=== PATIENT | female | born 1995 | race Caucasian/White ===

== ENCOUNTER → 2017-08-21 | Outpatient (CLI) | payer OTHER ==
[~2017-08-21] MED LIST: Abilify2 MG; FLUO10 PO; IBUP800 PO; NAPR500 PO; NAPR550; Norco 10-325 T1 EACH PO; OXYACE5T PO; PROM25 PO; TRAM50 PO; VENL150ER PO; VIIBRYD20 MG PO
== END ==
LOC: LAB SHORT 19:01
DX: J02.9 Acute pharyngitis, unspecified (principal)
CPT/HCPCS: 87070

== ENCOUNTER → 2018-01-25 | Outpatient (CLI) | payer OTHER ==
[~2018-01-25] MED LIST changes: -Abilify2 MG; -NAPR550; -VENL150ER PO
[2018-01-25 12:17] LABS: Alanine Aminotransfer (ALT/SGP 49 U/L (12-78); Alk Phos 82 U/L (40-126); Anion Gap 9 mmol/L (6-16); Aspartate Aminotrans (AST/SGOT 21 U/L (12-37); Bilirubin, Total 0.3 mg/dL (0.1-1.0); Blood Urea Nitrogen 12 mg/dL (8-24); Bun/Creatinine Ratio 16.7 (12.0-20.0); CO2, Blood 26 mmol/L (21-32); Calcium, Blood 9.1 mg/dL (8.5-10.1); Chloride, Blood 104 mmol/L (98-108); Creatinine, Blood 0.72 mg/dL (0.40-1.00); Globulin, Blood 3.9 g/dL (2.2-4.0); Glomerular Filtration Rate >60 (60-); Glucose, Blood 106 mg/dL (70-99); Potassium, Blood 4.1 mmol/L (3.5-5.5); Sodium, Blood 139 mmol/L (136-145); Total Protein, Blood 7.9 g/dL (6.4-8.2)
[2018-01-25 12:44] LABS: BASOPHILS ABSOLUTE AUTO 0.04 K/mm3 (0.00-0.23); BASOPHILS PERCENT AUTO 0 % (0-2); EOSINOPHILS ABSOLUTE AUTO 0.17 K/mm3 (0.00-0.68); EOSINOPHILS PERCENT AUTO 2 % (0-6); Hematocrit 40.7 % (33.0-51.0); Hemoglobin 13.7 g/dL (11.5-16.0); IMMATURE GRAN ABSOLUTE AUTO 0.02 K/mm3 (0.00-0.10); IMMATURE GRAN PERCENT AUTO 0 % (0-1); LYMPHOCYTES ABSOLUTE AUTO 2.94 K/mm3 (0.84-5.20); LYMPHOCYTES PERCENT AUTO 32 % (21-46); MONOCYTES ABSOLUTE AUTO 0.75 K/mm3 (0.16-1.47); MONOCYTES PERCENT AUTO 8 % (4-13); Mean Corpuscular HGB 29.5 pg (26.0-34.0); Mean Corpuscular HGB Conc 33.7 g/dL (31.5-36.5); Mean Corpuscular Volume 88 fL (80-100); Mean Platelet Volume 10.1 fL (9.1-12.4); NEUTROPHILS ABSOLUTE AUTO 5.31 K/mm3 (1.96-9.15); NEUTROPHILS PERCENT AUTO 58 % (41-73); Platelet Count 282 K/mm3 (150-400); RDW Coefficient Variation 12.9 % (11.7-14.2); RDW Standard Deviation 41.3 fL (35.1-46.3); Red Blood Cell Count 4.64 M/mm3 (3.80-5.20); White Blood Cell Count 9.23 K/mm3 (4.00-11.30)
== END ==
LOC: LAB SHORT 12:02 → LAB EV 12:02
PROVIDERS: Physician Assistant Medical
DX: R10.84 Generalized abdominal pain (principal)
CPT/HCPCS: 80053; 85025

== ENCOUNTER 2018-08-07 17:07 | Observation (INO) | payer OTHER ==
[~2018-08-07] VITALS: Ht 162.6 cm; Wt 119.6 kg
[~2018-08-07 17:07] MED LIST changes: -BC; -METPHE20 PO; -XARELTO15 MG PO
[2018-08-07] MEDS ORDERED: METPHE20 PO (17:20)
[2018-08-07] MEDS ORDERED: BC (21:14)
--- NOTE | 2018-08-07 22:50 | NUR ---
ASSUMED CARE OF PATIENT AT APPROXIMATELY 2109 FROM ED SHEILA DUVALL; PATIENT ARRIVED TO UNIT VIA STRETCHER; TRANSFER FROM ED TO PCU BED INDEPENDENTLY. PATIENT DENIES CP/PRESSURE, PAIN ELSEWHERE, NUMBNESS, TINGLING, DIZZINESS OR NAUSEA. PATIENT WILL CALL IF ANY OF THOSE SYMPTONS OCCUR. ST ON TELE; OXYGEN SATURATION ABOVE 90% ON ROOM AIR; DENIES DYSPNEA. PATIENT ARRIVED TO UNIT WITH HEPARIN INFUSING. PATIENT INDEPENDENT TO BATHROOM. ADMISSION COMPLETE. PATIENT CURRENTLY RESTING IN BED; CALL LIGHT IN REACH; BED IN LOWEST POSISTION; WILL CONTINUE TO MONITOR AND ASSESS UNTIL END OF SHIFT.
--- NOTE | 2018-08-07 23:49 | NUR ---
PATIENT REPORTS CHEST PAIN THAT INCREASES WITH DEEP BREATHING. PATIENT WAS LAYING IN FLAT POSISTION; HEAD OF BED ELEVATED AND PATIENT REPORTS PAIN IMMEDIATELY DECREASED; MEDICATED PER EMAR; PAIN 4/10. PATIENT ASLEEP LESS THAN AN HOUR LATER.
[2018-08-08 04:10] LABS: Hematocrit 37.6 % (33.0-51.0); Hemoglobin 12.3 g/dL (11.5-16.0); Mean Corpuscular HGB 28.6 pg (26.0-34.0); Mean Corpuscular HGB Conc 32.7 g/dL (31.5-36.5); Mean Corpuscular Volume 87 fL (80-100); Platelet Count 243 K/mm3 (150-400); RDW Coefficient Variation 12.6 % (11.7-14.2); RDW Standard Deviation 40.5 fL (35.1-46.3); White Blood Cell Count 8.68 K/mm3 (4.00-11.30)
[2018-08-08 04:28] LABS: Alanine Aminotransfer (ALT/SGP 26 U/L (12-78); Albumin, Blood 2.9 g/dL (3.4-5.0); Albumin/Globulin Ratio 0.7 (0.8-1.8); Alk Phos 90 U/L (50-136); Anion Gap 7 mmol/L (6-16); Aspartate Aminotrans (AST/SGOT 14 U/L (12-37); Bilirubin, Total 0.3 mg/dL (0.1-1.0); Blood Urea Nitrogen 11 mg/dL (8-24); Bun/Creatinine Ratio 15.9 (12.0-20.0); CO2, Blood 25 mmol/L (21-32); Calcium, Blood 8.1 mg/dL (8.5-10.1); Chloride, Blood 110 mmol/L (98-108); Creatinine, Blood 0.69 mg/dL (0.40-1.00); Globulin, Blood 4.3 g/dL (2.2-4.0); Glomerular Filtration Rate >60 (60-); Glucose, Blood 97 mg/dL (70-99); Potassium, Blood 3.9 mmol/L (3.5-5.5); Sodium, Blood 142 mmol/L (136-145); Total Protein, Blood 7.2 g/dL (6.4-8.2)
--- NOTE | 2018-08-08 06:27 | NUR ---
PATIENT SLEPT ABOUT SIX HOURS LAST NIGHT; HEPARIN ADJUSTED ONE; VSS; NO OTHER ACUTE CHANGES TO REPORT. WILL CONTINUE TO MONITOR AND ASSESS UNTIL END OF SHIFT.
--- NOTE | 2018-08-08 08:25 | NUR ---
BEGINNING SHIFT NOTE PT RESTING IN BED. A&O. PT REPORTS CHEST PAIN AND BACK PAIN, MEDICATED WITH TYLENOL. PT SITTING UP IN BED EATING BREAKFAST. TELE NSR IN 'S. HEPERIN DRIP VERIFIED WITH NOC RN SHAYLA NEELY DURING BEDSIDE REPORT. VSS. WILL CONTINUE TO MONITOR.
--- NOTE | 2018-08-08 10:02 | NUR ---
PT PROVIDED RITALIN AND EFFOR MEDICATION BOTTLES, VERIFIED ON MEDICATION LIST. THE RITALIN ORDERED IS ER HOWEVER PRESCRIPTION FOR IMMEDIATE RELEASE. NOTIFIED DR GUEVARA, NEW ORDER TO CHANGE TO RITALIN 20MG PO BID TO MATCH HOME MEDICATIONS.
--- NOTE | 2018-08-08 12:49 | NUR ---
CALLED DR GUEVARA TO CLARIFY HEPARIN BOLUS AND RATE CHANGE AND STARTING XARELTO. NEW ORDERS TO DISCONTINUE HEPARIN NOW AND FIRST DOSE OF HEPARIN NOW. WILL CONTINUE TO MONITOR.
[2018-08-08] MEDS ORDERED: XARELTO15 MG PO (12:53)
--- NOTE | 2018-08-08 14:45 | NUR ---
DISCHARGE NOTE PT A&OX4. CALM AND COOPERATIVE WITH CARE. PT RESTING IN BED DURING SHIFT, UP ON SIDE OF BED FOR MEALS. IND IN ROOM. PT SOB WITH EXERTION, >95% ON RA, LS DIM IN UPPER LOBES. PT REPORTS CHEST/BREATHING AND BACK PAIN, MEDICATED X1 WITH TYLENOL WITH POSITIVE RESULTS. PT DENIES N/V DURING SHIFT. PT ON HEPARIN DRIP, DISCONTINUED AT 1320. PT STARTED ON XARELTO PRIOR TO DISCHARGE. VSS. NO OTHER ACUTE CHANGES NOTED DURING SHIFT. PT EDUCATED ON DISCHARGE INSTRUCTIONS, MEDICATIONS AND FOLLOW UP APPOINTMENTS. PT EDUCATED TO BE REEVALUATED IF S/SX WORSE OR INCREASING SOB. PRESCRIPTIONS FAX TO [facility] PER PT REQUEST. NO OTHER ACUTE CHANGES NOTED DURING SHIFT. PT LEFT ROOM VIA WHEELCHAIR AT 1343. PT STABLE UPON DISCHARGE.
== END 2018-08-08 13:48 | disposition home or self-care (01) ==
LOC: ER 17:07 → PCU 17:08
PROVIDERS: ADMIT Internal Medicine
DX: I26.99 Other pulmonary embolism without acute cor pulmonale (principal); F32.9 Major depressive disorder, single episode, unspecified; G40.909 Epilepsy, unspecified, not intractable, without status epilepticus; R00.0 Tachycardia, unspecified; N83.201 Unspecified ovarian cyst, right side; Z79.899 Other long term (current) drug therapy; Z51.81 Encounter for therapeutic drug level monitoring
CPT/HCPCS: 36415; 71260; 80053; 81025; 83690; 84484; 85025; 85027; 85379; 85730; 93005; 93010; 96361; 96365; 96376; 99285-25; G0378; J1644; J7030; Q9967

== ENCOUNTER → 2018-08-07 | Outpatient (CLI) | payer OTHER ==
[~2018-08-07] MED LIST changes: +Abilify2 MG; +BC; +METPHE20 PO; +NAPR550; +VENL150ER PO; +XARELTO15 MG PO
[2018-08-07 16:43] LABS: BASOPHILS ABSOLUTE AUTO 0.04 K/mm3 (0.00-0.23); BASOPHILS PERCENT AUTO 0 % (0-2); EOSINOPHILS ABSOLUTE AUTO 0.14 K/mm3 (0.00-0.68); EOSINOPHILS PERCENT AUTO 2 % (0-6); Hematocrit 41.5 % (33.0-51.0); Hemoglobin 13.9 g/dL (11.5-16.0); IMMATURE GRAN ABSOLUTE AUTO 0.03 K/mm3 (0.00-0.10); IMMATURE GRAN PERCENT AUTO 0 % (0-1); LYMPHOCYTES ABSOLUTE AUTO 3.02 K/mm3 (0.84-5.20); LYMPHOCYTES PERCENT AUTO 32 % (21-46); MONOCYTES ABSOLUTE AUTO 0.64 K/mm3 (0.16-1.47); MONOCYTES PERCENT AUTO 7 % (4-13); Mean Corpuscular HGB 28.5 pg (26.0-34.0); Mean Corpuscular HGB Conc 33.5 g/dL (31.5-36.5); Mean Corpuscular Volume 85 fL (80-100); NEUTROPHILS ABSOLUTE AUTO 5.68 K/mm3 (1.96-9.15); NEUTROPHILS PERCENT AUTO 60 % (41-73); Platelet Count 282 K/mm3 (150-400); RDW Coefficient Variation 12.5 % (11.7-14.2); RDW Standard Deviation 38.5 fL (35.1-46.3); Red Blood Cell Count 4.88 M/mm3 (3.80-5.20); White Blood Cell Count 9.55 K/mm3 (4.00-11.30)
[2018-08-07 16:57] LABS: Alanine Aminotransfer (ALT/SGP 33 U/L (12-78); Albumin, Blood 3.3 g/dL (3.4-5.0); Albumin/Globulin Ratio 0.7 (0.8-1.8); Alk Phos 105 U/L (40-126); Anion Gap 12 mmol/L (6-16); Aspartate Aminotrans (AST/SGOT 19 U/L (12-37); Bilirubin, Total 0.3 mg/dL (0.1-1.0); Blood Urea Nitrogen 11 mg/dL (8-24); Bun/Creatinine Ratio 13.6 (12.0-20.0); CO2, Blood 23 mmol/L (21-32); Calcium, Blood 9.3 mg/dL (8.5-10.1); Chloride, Blood 104 mmol/L (98-108); Creatinine, Blood 0.81 mg/dL (0.40-1.00); Glomerular Filtration Rate >60 (60-); Glucose, Blood 111 mg/dL (70-99); Potassium, Blood 4.1 mmol/L (3.5-5.5); Sodium, Blood 139 mmol/L (136-145); Total Protein, Blood 8.3 g/dL (6.4-8.2)
[2018-08-07 16:58] LABS: Troponin I <0.015 ng/mL (0.000-0.040)
== END | disposition home or self-care (01) ==
LOC: LAB SHORT 16:39 → LAB EV 16:39
PROVIDERS: Physician Assistant
DX: R07.9 Chest pain, unspecified (principal)
CPT/HCPCS: 80053; 83690; 84484; 85025; 85379

== ENCOUNTER 2018-08-17 16:32 | Emergency (ER) | payer OTHER ==
[~2018-08-17] VITALS: Ht 162.6 cm; Wt 120.2 kg
[~2018-08-17 16:32] MED LIST changes: +BC; +METPHE20 PO; +XARELTO15 MG PO
[2018-08-17 17:31] LABS: BASOPHILS ABSOLUTE AUTO 0.04 K/mm3 (0.00-0.23); BASOPHILS PERCENT AUTO 0 % (0-2); EOSINOPHILS ABSOLUTE AUTO 0.13 K/mm3 (0.00-0.68); EOSINOPHILS PERCENT AUTO 1 % (0-6); Hematocrit 44.6 % (33.0-51.0); Hemoglobin 14.4 g/dL (11.5-16.0); IMMATURE GRAN ABSOLUTE AUTO 0.02 K/mm3 (0.00-0.10); IMMATURE GRAN PERCENT AUTO 0 % (0-1); LYMPHOCYTES ABSOLUTE AUTO 3.09 K/mm3 (0.84-5.20); LYMPHOCYTES PERCENT AUTO 34 % (21-46); MONOCYTES ABSOLUTE AUTO 0.62 K/mm3 (0.16-1.47); MONOCYTES PERCENT AUTO 7 % (4-13); Mean Corpuscular HGB 28.5 pg (26.0-34.0); Mean Corpuscular HGB Conc 32.3 g/dL (31.5-36.5); Mean Corpuscular Volume 88 fL (80-100); Mean Platelet Volume 9.9 fL (9.1-12.4); NEUTROPHILS ABSOLUTE AUTO 5.08 K/mm3 (1.96-9.15); NEUTROPHILS PERCENT AUTO 57 % (41-73); Platelet Count 319 K/mm3 (150-400); RDW Coefficient Variation 12.2 % (11.7-14.2); RDW Standard Deviation 39.5 fL (35.1-46.3); Red Blood Cell Count 5.05 M/mm3 (3.80-5.20); White Blood Cell Count 8.98 K/mm3 (4.00-11.30)
[2018-08-17 17:46] LABS: Alanine Aminotransfer (ALT/SGP 46 U/L (12-78); Albumin, Blood 3.6 g/dL (3.4-5.0); Albumin/Globulin Ratio 0.8 (0.8-1.8); Alk Phos 99 U/L (50-136); Anion Gap 4 mmol/L (6-16); Aspartate Aminotrans (AST/SGOT 27 U/L (12-37); Bilirubin, Total 0.3 mg/dL (0.1-1.0); Blood Urea Nitrogen 12 mg/dL (8-24); Bun/Creatinine Ratio 17.9 (12.0-20.0); CO2, Blood 28 mmol/L (21-32); Calcium, Blood 9.1 mg/dL (8.5-10.1); Chloride, Blood 106 mmol/L (98-108); Creatinine, Blood 0.67 mg/dL (0.40-1.00); Globulin, Blood 4.7 g/dL (2.2-4.0); Glomerular Filtration Rate >60 (60-); Glucose, Blood 120 mg/dL (70-99); Potassium, Blood 3.9 mmol/L (3.5-5.5); Sodium, Blood 138 mmol/L (136-145); Total Protein, Blood 8.3 g/dL (6.4-8.2)
== END 2018-08-17 19:36 | disposition home or self-care (01) ==
LOC: ER 16:32
PROVIDERS: Physician Assistant
DX: I26.99 Other pulmonary embolism without acute cor pulmonale (principal); Z79.899 Other long term (current) drug therapy
CPT/HCPCS: 36415; 80053; 85025; 93005; 93010; 99285-25

== ENCOUNTER → 2018-10-29 | Outpatient (CLI) | payer OTHER ==
[~2018-10-29] MED LIST changes: +XARELTO20 MG PO
[2018-10-29 15:02] LABS: BASOPHILS ABSOLUTE AUTO 0.05 K/mm3 (0.00-0.23); BASOPHILS PERCENT AUTO 0 % (0-2); EOSINOPHILS ABSOLUTE AUTO 0.15 K/mm3 (0.00-0.68); EOSINOPHILS PERCENT AUTO 1 % (0-6); Hematocrit 40.3 % (33.0-51.0); Hemoglobin 13.5 g/dL (11.5-16.0); IMMATURE GRAN ABSOLUTE AUTO 0.03 K/mm3 (0.00-0.10); IMMATURE GRAN PERCENT AUTO 0 % (0-1); LYMPHOCYTES ABSOLUTE AUTO 3.87 K/mm3 (0.84-5.20); LYMPHOCYTES PERCENT AUTO 33 % (21-46); MONOCYTES ABSOLUTE AUTO 0.58 K/mm3 (0.16-1.47); MONOCYTES PERCENT AUTO 5 % (4-13); Mean Corpuscular HGB 28.7 pg (26.0-34.0); Mean Corpuscular HGB Conc 33.5 g/dL (31.5-36.5); Mean Corpuscular Volume 86 fL (80-100); Mean Platelet Volume 10.2 fL (9.1-12.4); NEUTROPHILS ABSOLUTE AUTO 7.06 K/mm3 (1.96-9.15); NEUTROPHILS PERCENT AUTO 60 % (41-73); Platelet Count 306 K/mm3 (150-400); RDW Coefficient Variation 13.2 % (11.7-14.2); RDW Standard Deviation 40.9 fL (35.1-46.3); Red Blood Cell Count 4.71 M/mm3 (3.80-5.20); White Blood Cell Count 11.74 K/mm3 (4.00-11.30)
[2018-10-29 15:20] LABS: Alanine Aminotransfer (ALT/SGP 41 U/L (12-78); Albumin, Blood 3.9 g/dL (3.4-5.0); Albumin/Globulin Ratio 0.9 (0.8-1.8); Alk Phos 90 U/L (40-126); Anion Gap 10 mmol/L (6-16); Aspartate Aminotrans (AST/SGOT 20 U/L (12-37); Bilirubin, Total 0.4 mg/dL (0.1-1.0); Blood Urea Nitrogen 9 mg/dL (8-24); Bun/Creatinine Ratio 9.3 (12.0-20.0); CO2, Blood 27 mmol/L (21-32); CPK Creatine Kinase 57 U/L (26-192); Calcium, Blood 8.5 mg/dL (8.5-10.1); Chloride, Blood 101 mmol/L (98-108); Creatinine, Blood 0.97 mg/dL (0.40-1.00); Free Thyroxine 0.78 ng/dL (0.70-1.60); Globulin, Blood 4.4 g/dL (2.2-4.0); Glomerular Filtration Rate >60 (60-); Glucose, Blood 142 mg/dL (70-99); Potassium, Blood 3.6 mmol/L (3.5-5.5); Sodium, Blood 138 mmol/L (136-145); Thyroid Stimulating Hormone 0.979 uIU/mL (0.360-4.800); Total Protein, Blood 8.3 g/dL (6.4-8.2)
[2018-10-29 15:56] LABS: Troponin I <0.017 ng/mL (0.000-0.040)
== END | disposition home or self-care (01) ==
LOC: LAB EV 14:54 → LAB SHORT 14:54
PROVIDERS: General Practice
DX: R00.2 Palpitations (principal)
CPT/HCPCS: 80053; 82550; 84439; 84443; 84484; 85025; 85379

== ENCOUNTER 2019-02-03 08:25 | Emergency (ER) | payer OTHER ==
[~2019-02-03] VITALS: Ht 162.6 cm; Wt 117.9 kg
[2019-02-03] MEDS ORDERED: Venlafaxine HC225 MG PO (08:56)
== END 2019-02-03 09:44 | disposition home or self-care (01) ==
LOC: ER 08:25
DX: R51 Headache (principal)
CPT/HCPCS: 96372; 99283-25; J0780; J1200; J1885

== ENCOUNTER 2019-03-23 10:43 | Emergency (ER) | payer OTHER ==
[~2019-03-23] VITALS: Ht 162.6 cm; Wt 117.9 kg
[~2019-03-23 10:43] MED LIST changes: +Venlafaxine HC225 MG PO
[2019-03-23] MEDS ORDERED: ALPR1 PO (11:11)
== END 2019-03-23 12:11 | disposition home or self-care (01) ==
LOC: ER 10:43
DX: S51.812A Laceration without foreign body of left forearm, initial encounter (principal); S61.512A Laceration without foreign body of left wrist, initial encounter; F32.9 Major depressive disorder, single episode, unspecified; F43.9 Reaction to severe stress, unspecified; W26.9XXA Contact with unspecified sharp object(s), initial encounter; Z88.8 Allergy status to other drugs, medicaments and biological substances; Z79.899 Other long term (current) drug therapy
CPT/HCPCS: 99283

== ENCOUNTER 2019-06-11 17:50 | Emergency (ER) | payer MEDICAID ==
[~2019-06-11 17:50] MED LIST changes: +ALPR1 PO
== END 2019-06-11 18:11 | disposition left against medical advice (07) ==
LOC: ER 17:50
DX: Z53.21 Procedure and treatment not carried out due to patient leaving prior to being seen by health care provider (principal)

== ENCOUNTER 2019-07-18 08:48 | Emergency (ER) | payer OTHER ==
[~2019-07-18] VITALS: Ht 162.6 cm; Wt 113.4 kg
[2019-07-18 10:04] LABS: BASOPHILS ABSOLUTE AUTO 0.04 K/mm3 (0.00-0.23); BASOPHILS PERCENT AUTO 1 % (0-2); EOSINOPHILS ABSOLUTE AUTO 0.13 K/mm3 (0.00-0.68); EOSINOPHILS PERCENT AUTO 2 % (0-6); Hematocrit 41.2 % (33.0-51.0); Hemoglobin 13.4 g/dL (11.5-16.0); IMMATURE GRAN ABSOLUTE AUTO 0.03 K/mm3 (0.00-0.10); IMMATURE GRAN PERCENT AUTO 0 % (0-1); LYMPHOCYTES ABSOLUTE AUTO 2.79 K/mm3 (0.84-5.20); LYMPHOCYTES PERCENT AUTO 36 % (21-46); MONOCYTES ABSOLUTE AUTO 0.51 K/mm3 (0.16-1.47); MONOCYTES PERCENT AUTO 7 % (4-13); Mean Corpuscular HGB 29.1 pg (26.0-34.0); Mean Corpuscular HGB Conc 32.5 g/dL (31.5-36.5); Mean Corpuscular Volume 90 fL (80-100); Mean Platelet Volume 10.2 fL (9.1-12.4); NEUTROPHILS ABSOLUTE AUTO 4.26 K/mm3 (1.96-9.15); NEUTROPHILS PERCENT AUTO 55 % (41-73); Platelet Count 257 K/mm3 (150-400); RDW Coefficient Variation 12.6 % (11.7-14.2); RDW Standard Deviation 41.3 fL (35.1-46.3); White Blood Cell Count 7.76 K/mm3 (4.00-11.30)
[2019-07-18 10:29] LABS: Anion Gap 4 mmol/L (6-16); Blood Urea Nitrogen 10 mg/dL (8-24); Bun/Creatinine Ratio 15.3 (12.0-20.0); CO2, Blood 25 mmol/L (21-32); Calcium, Blood 8.5 mg/dL (8.5-10.1); Chloride, Blood 110 mmol/L (98-108); Creatinine, Blood 0.65 mg/dL (0.40-1.00); Glomerular Filtration Rate >60 (60-); Glucose, Blood 86 mg/dL (70-99); Potassium, Blood 3.9 mmol/L (3.5-5.5); Sodium, Blood 139 mmol/L (136-145)
[2019-07-18 11:21] LABS: Source, Urine Clean Catch
[2019-07-18 11:27] LABS: Bilirubin, Urine Neg (Neg); Blood, Urine 3+ (Neg); Glucose Qualitative, Urine Neg (Neg); Ketones, Urine Neg (Neg); Leukocyte Esterase, Urine Neg (Neg); Nitrite, Urine Neg (Neg); Protein, Urine Neg (Neg); Urobilinogen, Urine NORM (Normal)
[2019-07-18 11:40] LABS: Appearance, Urine Clear (Clear); Color, Urine Yellow (P-Yellow)
[2019-07-18 11:41] LABS: Bacteria Rare /hpf; Mucus Light (0-Heavy); Squamous Epithelial Cells Mod /hpf (Few); White Blood Cells, Urine 0-2 /hpf (0-5)
[2019-07-18] MEDS ORDERED: KETO10 PO (12:11)
== END 2019-07-18 12:20 | disposition home or self-care (01) ==
LOC: ER 08:48
PROVIDERS: Physician Assistant
DX: N83.201 Unspecified ovarian cyst, right side (principal); Z88.8 Allergy status to other drugs, medicaments and biological substances; Z79.899 Other long term (current) drug therapy; F32.9 Major depressive disorder, single episode, unspecified
CPT/HCPCS: 36415; 76830; 76856; 80048; 81001; 84703; 85025; 96361; 96374; 96375; 99284-25; J1885; J2405; J7030

== ENCOUNTER → 2019-11-16 | Outpatient (CLI) | payer OTHER ==
[~2019-11-16] MED LIST changes: +KETO10 PO
[2019-11-16 13:55] LABS: Source, Urine Clean Catch
[2019-11-16 17:14] LABS: Bilirubin, Urine Neg (Neg); Blood, Urine 3+ (Neg); Glucose Qualitative, Urine 2+ (Neg); Ketones, Urine 2+ (Neg); Leukocyte Esterase, Urine 1+ (Neg); Nitrite, Urine Neg (Neg); Protein, Urine 1+ (Neg); Specific Gravity, Urine 1.025 (1.003-1.022); Urobilinogen, Urine NORM (Normal)
[2019-11-16 17:33] LABS: Appearance, Urine Hazy (Clear); Color, Urine Yellow (P-Yellow)
[2019-11-16 17:36] LABS: Bacteria Many /hpf; Red Blood Cells, Urine 50-100 /hpf (0-2); Squamous Epithelial Cells Many /hpf (Few); White Blood Cells, Urine TNTC /hpf (0-5)
== END | disposition home or self-care (01) ==
LOC: LAB SHORT 13:53 → LAB 13:53
PROVIDERS: Advanced Practice Midwife
DX: R30.0 Dysuria (principal)
CPT/HCPCS: 81001; 87077; 87086; 87186

== ENCOUNTER 2020-05-21 11:00 | Inpatient (IN) | payer OTHER ==
[~2020-05-21] VITALS: Ht 162.6 cm; Wt 122.0 kg
[2020-05-21] MEDS ORDERED: ENOX40I SC (14:11)
[2020-05-21] MEDS ORDERED: GLYB2.5 (14:11)
[2020-05-21] MEDS ORDERED: EUTHYROX50 MCG PO (14:12)
[2020-05-21] MEDS ORDERED: VENL150ER PO (14:13)
[2020-05-21] MEDS ORDERED: LABE100 PO (14:13)
[2020-05-21] MEDS ORDERED: BUSP10 PO (14:14)
[2020-05-21] MEDS ORDERED: PRENATAL TABLE1 EAC2 (15:21)
[2020-05-21 17:55] LABS: Hematocrit 36.2 % (33.0-51.0); Hemoglobin 11.7 g/dL (11.5-16.0); Mean Corpuscular HGB 28.5 pg (26.0-34.0); Mean Corpuscular HGB Conc 32.3 g/dL (31.5-36.5); Mean Corpuscular Volume 88 fL (80-100); Mean Platelet Volume 11.3 fL (9.1-12.4); Platelet Count 231 K/mm3 (150-400); RDW Coefficient Variation 13.7 % (11.7-14.2); RDW Standard Deviation 44.1 fL (35.1-46.3); White Blood Cell Count 9.04 K/mm3 (4.00-11.30)
--- NOTE | 2020-05-23 10:01 | NUR ---
DR RIVERA CONSULTED PT. DR POPE HERE LOOKING THRU CHART,
--- NOTE | 2020-05-23 11:07 | NUR ---
05/23/20 1107 Keila Upton 1039 PT IV PULLED OUT WHILE REPOSITIONING FROM SPINAL, IV RESTARTED 18GAUGE LEFT AC BY Antonia JOSE RN. 1051 DELIVERY VIABLE MALE INFANT APGARS 9/9, WEIGHT 3960 8# 12OZ, HEAD 14.25 INCHES, CHEST 13.75 INCHES, LENGTH 20.25 INCHES, PLACENTA 85=40 GM, RIGHT AND LEFT FALLOPIAN TUBES SENT TO PATHOLOGY
[2020-05-23 11:08] LABS: PCO2 Cord - Arterial 49.3 mmHg (40-50); PO2 Cord - Arterial 17.6 mmHg (16-20); pH Cord - Arterial 7.28 (7.28-7.35)
[2020-05-23 11:09] LABS: PCO2 Cord - Venous 41.1 mmHg (40-50); PO2 Cord - Venous 29.2 mmHg (28-32); pH Umbilical Cord - Venous 7.34 (7.26-7.35)
[2020-05-24 06:00] LABS: BASOPHILS ABSOLUTE AUTO 0.03 K/mm3 (0.00-0.23); BASOPHILS PERCENT AUTO 0 % (0-2); EOSINOPHILS ABSOLUTE AUTO 0.16 K/mm3 (0.00-0.68); EOSINOPHILS PERCENT AUTO 1 % (0-6); Hematocrit 31.3 % (33.0-51.0); Hemoglobin 10.3 g/dL (11.5-16.0); IMMATURE GRAN ABSOLUTE AUTO 0.03 K/mm3 (0.00-0.10); IMMATURE GRAN PERCENT AUTO 0 % (0-1); LYMPHOCYTES ABSOLUTE AUTO 3.33 K/mm3 (0.84-5.20); LYMPHOCYTES PERCENT AUTO 26 % (21-46); MONOCYTES ABSOLUTE AUTO 0.71 K/mm3 (0.16-1.47); MONOCYTES PERCENT AUTO 6 % (4-13); Mean Corpuscular HGB 28.9 pg (26.0-34.0); Mean Corpuscular HGB Conc 32.9 g/dL (31.5-36.5); Mean Corpuscular Volume 88 fL (80-100); Mean Platelet Volume 11.4 fL (9.1-12.4); NEUTROPHILS ABSOLUTE AUTO 8.36 K/mm3 (1.96-9.15); NEUTROPHILS PERCENT AUTO 66 % (41-73); Platelet Count 181 K/mm3 (150-400); RDW Coefficient Variation 13.8 % (11.7-14.2); RDW Standard Deviation 43.6 fL (35.1-46.3); Red Blood Cell Count 3.57 M/mm3 (3.80-5.20); White Blood Cell Count 12.62 K/mm3 (4.00-11.30)
--- NOTE | 2020-05-24 20:10 | NUR ---
PT UP AMBULATING IN TAPIA
[2020-05-25] MEDS ORDERED: IBUP800 PO (09:47)
[2020-05-25] MEDS ORDERED: Percocet 5-3251 EACH PO (09:47)
--- NOTE | 2020-05-25 10:27 | NUR ---
PT OOB, AMBULATING IN THE HALLS. MILKA WELL.
--- NOTE | 2020-05-25 11:56 | NUR ---
CONSULT. SHE STATED HE JUST FINISHED FEEDING AND DID WELL USING SHIELD WITH SYRINGE OF FORMULA INTO THE CORNER OF HIS MOUTH AT THE START OF THE FEEDING, LESS THAN 5CC GIVEN. INSTRUCT IN HAVING HIM SUCK ON A PARENTS CLEAN FINGER BEFORE PUTTING TO BREAST TO HELP HIM COORDINATE HIS SUCK, CONTINUE TO USE SMALL AMOUNT OF FORMULA AT THE START OF FEEDING TO PREVENT HIS RAPID TEMPER FLARE, WEANING FROM SHIELD USE IN A COUPLE DAYS, AND USING EBM RATHER THAN FORMULA BY PUMPING FOR A FEW MINUTES SEVERAL TIMES EACH DAY. SHE HAS A PUMP AT HOME. DISCUSSED DAD HELPING TO CALM HIM IF HE BECOMES ANGRY AT BREAST, THEN RETURN HIM TO BREAST AGAIN WHEN HE IS CALM. BOTH PARENTS LISTENED TO INSTRUCTIONS AND ASKED QUESTIONS. BOTH LOVING WITH BABY. HE IS CURRENTLY ASLEEP ON MOMS CHEST.
--- NOTE | 2020-05-25 14:33 | NUR ---
1400: REPORT GIVEN TO Ada GARCIA RN. PARENTS AMBULATE TO NURSERY TO VISIT NB
== END 2020-05-26 17:44 | disposition home or self-care (01) | DRG 784 ==
LOC: BC 05-23 08:34
PROVIDERS: ADMIT Obstetrics & Gynecology
PROC: 10D00Z1 Extraction of Products of Conception, Low, Open Approach (ICD-10-PCS; principal; 2020-05-23 10:30)
PROC: 0UT70ZZ Resection of Bilateral Fallopian Tubes, Open Approach (ICD-10-PCS; 2020-05-23 10:30)
PROC: 0UB00ZZ Excision of Right Ovary, Open Approach (ICD-10-PCS; 2020-05-23 10:30)
PROC: 3E0234Z Introduction of Serum, Toxoid and Vaccine into Muscle, Percutaneous Approach (ICD-10-PCS; 2020-05-26)
DX: O24.425 Gestational diabetes mellitus in childbirth, controlled by oral hypoglycemic drugs (principal); O10.92 Unspecified pre-existing hypertension complicating childbirth; Z23 Encounter for immunization; O99.892 Other specified diseases and conditions complicating childbirth; D27.0 Benign neoplasm of right ovary; O34.211 Maternal care for low transverse scar from previous cesarean delivery; Z30.2 Encounter for sterilization; Z37.0 Single live birth; Z3A.38 38 weeks gestation of pregnancy; Z86.718 Personal history of other venous thrombosis and embolism; O99.344 Other mental disorders complicating childbirth; F41.9 Anxiety disorder, unspecified; F32.9 Major depressive disorder, single episode, unspecified
CPT/HCPCS: 36415; 82803; 82947; 85025; 85027; 86850; 86900; 86901; 90707; A9270; A9270-GY; J0690; J1650; J1885; J2001; J2370; J2405; J2590; J2765; J3010; J7120

== ENCOUNTER 2022-07-10 06:11 | Day surgery (SDC) | payer OTHER ==
[2022-07-08 18:01] LABS: BASOPHILS ABSOLUTE AUTO 0.04 K/mm3 (0.00-0.23); BASOPHILS PERCENT AUTO 0 % (0-2); EOSINOPHILS ABSOLUTE AUTO 0.29 K/mm3 (0.00-0.68); EOSINOPHILS PERCENT AUTO 3 % (0-6); Hematocrit 39.8 % (33.0-51.0); Hemoglobin 13.4 g/dL (11.5-16.0); IMMATURE GRAN ABSOLUTE AUTO 0.02 K/mm3 (0.00-0.10); IMMATURE GRAN PERCENT AUTO 0 % (0-1); LYMPHOCYTES ABSOLUTE AUTO 4.38 K/mm3 (0.84-5.20); LYMPHOCYTES PERCENT AUTO 42 % (21-46); MONOCYTES ABSOLUTE AUTO 0.67 K/mm3 (0.16-1.47); MONOCYTES PERCENT AUTO 7 % (4-13); Mean Corpuscular HGB 28.9 pg (26.0-34.0); Mean Corpuscular HGB Conc 33.7 g/dL (31.5-36.5); Mean Corpuscular Volume 86 fL (80-100); Mean Platelet Volume 9.9 fL (9.1-12.4); NEUTROPHILS ABSOLUTE AUTO 4.94 K/mm3 (1.96-9.15); NEUTROPHILS PERCENT AUTO 48 % (41-73); Platelet Count 296 K/mm3 (150-400); RDW Coefficient Variation 12.8 % (11.7-14.2); Red Blood Cell Count 4.64 M/mm3 (3.80-5.20); White Blood Cell Count 10.34 K/mm3 (4.00-11.30)
[~2022-07-10] VITALS: Ht 162.6 cm; Wt 112.6 kg
[~2022-07-10 06:11] MED LIST changes: +BUSP10 PO; +ENOX40I SC; +EUTHYROX50 MCG PO; +GLYB2.5; +LABE100 PO; +PRENATAL TABLE1 EAC2; +Percocet 5-3251 EACH PO
--- NOTE | 2022-07-10 07:07 | NUR ---
History, Chart, Medications and Allergies reviewed before start of procedure. Patient confirms NPO status and agrees with scheduled surgery. PT BELONGINGS PLACED UNDERNEATH GURNEY FOR SAFEKEEPING. PT NOSE RING TAPED, WAIVER SIGNED.
--- NOTE | 2022-07-10 13:21 | NUR ---
PT ARRIVED TO UNIT, SHE IS AA0X4. WIDE AWAKE AND DENIES PAIN. SHE REPORTS DISCOMFORT AT SURGICAL SITE. PT WILL CALL ONCE HER PAIN BEGINS TO INCREASE. TOLERATING PO WELL AT THIS TIME, DRINKING WATER AND TOLERATING JELLO. NEELY PATENT AND DRAINING. DRESSING CDI TO ABD. SANAM PAD IN PLACE
--- NOTE | 2022-07-10 16:01 | NUR ---
SHIFT SUMMARY S/P TOTAL LAP HYSTER SCANT DRAINAGE ON SANAM PAD. PT HAS BEEN UP AND AMBULATING WELL IN HALLWAYS. NEELY REMOVED, HAS VOIDED. TOLERATING PO WELL, NO NAUSEA. PAIN MANAGED PER EMAR. INCREASE IN PAIN AFTER AMBULATING BUT ABLE TO REST AND DEEP BREATH WELL. PLAN IS FOR PATIENT TO DISCHARGE TOMORROW. ALL PRESCRIPTIONS PICKED UP ALREADY.
--- NOTE | 2022-07-10 16:46 | NUR ---
1601 ASSUMED CARE OF PATIENT.PT REPORTS PAIN IS CURRENTLY LEVEL 1-2
--- NOTE | 2022-07-10 18:30 | NUR ---
ambulating in hallway. pt reports pain is controlled at 2/10, denies nausea
--- NOTE | 2022-07-11 04:13 | NUR ---
POD1 FOR A LAP HYSTER. X4 LAP SITES ARE C/D/I. VSS. PT HAS COMPLAINED OF CONSISTANT PAIN T/O THE NIGHT, MEDICATED PER EMAR. ENCOURAGED NONPHARM METHODS. PT USED K PAD T/O THE NIGHT. PT AMBULATING INDEP IN ROOM, VOIDING W/O DIFFICULTY, AND PASSING SOME FLATTUS. TOLLERATING PO INTAKE W/O N/V. PT HAS WORN SCD'S T/O THE NIGHT D/T HX OF BLOOD CLOTS. PLAN FOR PT TO D/C HOME TODAY. THE PATIENT IS CURRENTLY RESTING IN BED, IN NO DISTRESS, CALL LIGHT IN REACH.
[2022-07-11 04:57] LABS: BASOPHILS ABSOLUTE AUTO 0.02 K/mm3 (0.00-0.23); BASOPHILS PERCENT AUTO 0 % (0-2); EOSINOPHILS PERCENT AUTO 0 % (0-6); Hematocrit 37.4 % (33.0-51.0); Hemoglobin 12.3 g/dL (11.5-16.0); IMMATURE GRAN ABSOLUTE AUTO 0.07 K/mm3 (0.00-0.10); IMMATURE GRAN PERCENT AUTO 0 % (0-1); LYMPHOCYTES ABSOLUTE AUTO 2.62 K/mm3 (0.84-5.20); LYMPHOCYTES PERCENT AUTO 16 % (21-46); MONOCYTES ABSOLUTE AUTO 0.95 K/mm3 (0.16-1.47); MONOCYTES PERCENT AUTO 6 % (4-13); Mean Corpuscular HGB 28.7 pg (26.0-34.0); Mean Corpuscular HGB Conc 32.9 g/dL (31.5-36.5); Mean Corpuscular Volume 87 fL (80-100); Mean Platelet Volume 9.9 fL (9.1-12.4); NEUTROPHILS ABSOLUTE AUTO 12.57 K/mm3 (1.96-9.15); NEUTROPHILS PERCENT AUTO 78 % (41-73); Platelet Count 282 K/mm3 (150-400); RDW Coefficient Variation 13.1 % (11.7-14.2); Red Blood Cell Count 4.29 M/mm3 (3.80-5.20); White Blood Cell Count 16.23 K/mm3 (4.00-11.30)
[2022-07-11] MEDS ORDERED: PROMETHAZINE12.5 M1 PO (08:20)
[2022-07-11] MEDS ORDERED: SIME80CH PO (08:21)
--- NOTE | 2022-07-11 08:47 | NUR ---
DISCHARGE NOTE: PATIENT AND PATIENTS WERE EDUCATED ON DISCHARGE INSTRUCTIONS. BOTH VERBALIZED UNDERSTANDING OF INSTRUCTIONS AND HAD NO FURTHER QUESTIONS AT THIS TIME. HARD PERSCRIPTIONS WERE ALREADY FILLED OUT AND ARE WAITING AT HOME FOR PATIENT. IV WAS TAKEN OUT AND WNL. PAIN IS MANAGED WITH ORAL PAIN MEDICATIONS. SHE HAS 4 ABD LAP SITES WITH WOUND GLUE THAT ARE C/D/I. SHE HAS SCANT AMOUNT OF BLOOD ON HER SANAM PAD. SHE IS TOLERATING PO INTAKE AND IS VOIDING/PASSING GAS. PATIENT IS DRESSED AND HAS PERSONAL ITEMS IN THE ROOM GATHERED. SHE IS BEING WHEELCHAIRED OUT TO HER HUSBANDS CAR TO BE TAKEN HOME.
== END 2022-07-11 08:38 | disposition home or self-care (01) ==
LOC: ORSCMMR 06:11 → ORD 07:30 → ORSCMMR 07:30 → SURS 12:41 → ORSCMMR 07-11 08:38
PROVIDERS: Obstetrics & Gynecology
PROC: 0UT9FZZ Resection of Uterus, Via Natural or Artificial Opening With Percutaneous Endoscopic Assistance (ICD-10-PCS; principal; 2022-07-10 07:30)
PROC: 0UT94ZZ Resection of Uterus, Percutaneous Endoscopic Approach (ICD-10-PCS; principal; 2022-07-10 07:30)
PROC: 0UT14ZZ Resection of Left Ovary, Percutaneous Endoscopic Approach (ICD-10-PCS; principal; 2022-07-10 07:30)
DX: N92.1 Excessive and frequent menstruation with irregular cycle (principal); N80.9 Endometriosis, unspecified; N83.201 Unspecified ovarian cyst, right side; N83.292 Other ovarian cyst, left side; N94.6 Dysmenorrhea, unspecified; N94.10 Unspecified dyspareunia; N83.8 Other noninflammatory disorders of ovary, fallopian tube and broad ligament; Z86.711 Personal history of pulmonary embolism; Z86.718 Personal history of other venous thrombosis and embolism; F17.210 Nicotine dependence, cigarettes, uncomplicated; F41.8 Other specified anxiety disorders; E66.01 Morbid (severe) obesity due to excess calories; Z68.41 Body mass index [BMI] 40.0-44.9, adult; Z79.899 Other long term (current) drug therapy
CPT/HCPCS: 58571; S2900; 36415; 85025; 86850; 86900; 86901; 88307; A9270; J0690; J1100; J1170; J1650; J1885; J2250; J2405; J2704; J2765; J3010; J7120

== ENCOUNTER → 2023-12-31 | Outpatient (CLI) | payer OTHER ==
[~2023-12-31] MED LIST changes: +PROMETHAZINE12.5 M1 PO; +SIME80CH PO
== END ==
LOC: LAB SHORT 15:30 → LAB 15:30
DX: N39.0 Urinary tract infection, site not specified (principal)
CPT/HCPCS: 87077; 87086; 87186

== ENCOUNTER 2024-10-31 02:58 | Observation (INO) | payer OTHER ==
[~2024-10-31] VITALS: Ht 162.6 cm; Wt 113.4 kg
[2024-10-31 03:41] LABS: BASOPHILS ABSOLUTE AUTO 0.04 K/mm3 (0.00-0.23); BASOPHILS PERCENT AUTO 0 % (0-2); EOSINOPHILS ABSOLUTE AUTO 0.41 K/mm3 (0.00-0.68); EOSINOPHILS PERCENT AUTO 3 % (0-6); Hematocrit 42.3 % (33.0-51.0); Hemoglobin 13.8 g/dL (11.5-16.0); IMMATURE GRAN ABSOLUTE AUTO 0.05 K/mm3 (0.00-0.10); IMMATURE GRAN PERCENT AUTO 0 % (0-1); LYMPHOCYTES PERCENT AUTO 27 % (21-46); MONOCYTES ABSOLUTE AUTO 0.92 K/mm3 (0.16-1.47); MONOCYTES PERCENT AUTO 7 % (4-13); Mean Corpuscular HGB 29.7 pg (26.0-34.0); Mean Corpuscular HGB Conc 32.6 g/dL (31.5-36.5); Mean Corpuscular Volume 91 fL (80-100); Mean Platelet Volume 9.7 fL (9.1-12.4); NEUTROPHILS PERCENT AUTO 63 % (41-73); Platelet Count 287 K/mm3 (150-400); RDW Coefficient Variation 13.2 % (11.7-14.2); Red Blood Cell Count 4.65 M/mm3 (3.80-5.20); White Blood Cell Count 14.02 K/mm3 (4.00-11.30)
[2024-10-31 03:53] LABS: Albumin, Blood 3.4 g/dL (3.4-5.0); Albumin/Globulin Ratio 0.8 (0.8-1.8); Bilirubin, Total 0.3 mg/dL (0.1-1.0); Bun/Creatinine Ratio 15.5 (12.0-20.0); Calcium, Blood 8.9 mg/dL (8.5-10.1); Creatinine, Blood 0.65 mg/dL (0.40-1.00); Potassium, Blood 4.2 mmol/L (3.5-5.5); Total Protein, Blood 7.4 g/dL (6.4-8.2)
[2024-10-31 03:55] LABS: Source, Urine Clean Catch
[2024-10-31 04:01] LABS: Bilirubin, Urine Neg (Neg); Blood, Urine Neg (Neg); Glucose Qualitative, Urine Neg (Neg); Ketones, Urine Neg (Neg); Leukocyte Esterase, Urine 1+ (Neg); Nitrite, Urine Neg (Neg); Protein, Urine Neg (Neg); Urobilinogen, Urine NORM (Normal); pH, Urine 6.5 (5.0-8.0)
[2024-10-31 04:05] LABS: Appearance, Urine Clear (Clear); Color, Urine Yellow (P-Yellow)
[2024-10-31 04:09] LABS: Bacteria Many /hpf; Red Blood Cells, Urine Not Seen /hpf (0-2); Squamous Epithelial Cells Mod /hpf (Few)
[2024-10-31] MEDS ORDERED: HYDROmorphone HCl/Pf 1MG SYR IV ONE ×2 (05:55→09:45)
[2024-10-31] MEDS ORDERED: OxyCODONE HCL 5 MG TAB PO ONE (06:30)
[2024-10-31] MEDS ORDERED: Bisacodyl 5 MG TabEC PO ONE (06:30)
[2024-10-31] MEDS ORDERED: OXYACE7.5T PO (08:08)
[2024-10-31] MEDS ORDERED: Morphine Sulfate 4 MG/1 ML Injection IV ONE (08:20)
[2024-10-31] MEDS ORDERED: Ketorolac Tromethamine 30mg Vial IV ONE (09:55)
[2024-10-31] MEDS ORDERED: Droperidol 5 mg/2 ml Vial IV ONE (10:20)
[2024-10-31] MEDS ORDERED: Haloperidol Lactate Inj. 5 MG/ML Injection IV ONE (10:25)
[2024-10-31] MEDS ORDERED: DiphenhydrAMINE HCL 25 MG Cap PO PRN (14:40)
[2024-10-31] MEDS ORDERED: Naloxone HCl 0.4MG / ML 1ML Vial IV PRN (14:40)
[2024-10-31] MEDS ORDERED: Ondansetron HCl 2 MG / ML 2ML Vial IV PRN (14:40)
[2024-10-31] MEDS ORDERED: Lactated Ringer's 1,000 ML IV SCH (14:40)
[2024-10-31] MEDS ORDERED: Ibuprofen 400 MG Tab PO PRN (14:45)
[2024-10-31] MEDS ORDERED: OxyCODONE HCL 5 MG TAB PO PRN (14:45)
[2024-10-31] MEDS ORDERED: fentaNYL citrate 20 MCG/ML 30MLSYR IV PRN (14:50)
--- NOTE | 2024-10-31 15:45 | NUR ---
ARRIVAL TO SURGICAL UNIT VIA GURNEY, ABLE TO TRANSFER SELF TO HOSPITAL BED. SNACKS AND DRINKS GIVEN. PAIN TOLERABLE, TRAIN BRAKER TO BE SET UP FOR PAIN MANAGEMENT.
[2024-10-31 15:49] VITALS: BP 164/90
[2024-10-31] MEDS ORDERED: Ketorolac Tromethamine 30mg Vial IV SCH (18:00)
[2024-10-31 19:36] VITALS: BP 149/84
--- NOTE | 2024-11-01 05:01 | NUR ---
SHIFT SUMMARY NO ACUTE CHANGES THIS SHIFT. PAIN MANAGED PER EMAR WITH MIN OTOLARYNGOLOGY TEACHER USE. LOWER ABD TENDER AND SOFT TO PALPATION. A/OX4 WITH VSS. NPO AFTER MIDNIGHT. SHOWERED AND CHG BATH COMPLETE. IVF INFUSING WITH ON DEMAND OTOLARYNGOLOGY TEACHER PER ORDERS. PT CALM AND COOPERATIVE WITH CARE. S/O ATTENTIVE AT BEDSIDE. PT APPEARS TO HAVE SLEPT T/O MOST OF NIGHT. PLAN FOR POSSIBLE SURGICAL INTERVENTION TODAY. WILL GIVE REPORT TO ONCOMING RN.
[2024-11-01 05:02] VITALS: BP 133/82
[2024-11-01 06:03] LABS: BASOPHILS ABSOLUTE AUTO 0.03 K/mm3 (0.00-0.23); BASOPHILS PERCENT AUTO 0 % (0-2); EOSINOPHILS ABSOLUTE AUTO 0.16 K/mm3 (0.00-0.68); EOSINOPHILS PERCENT AUTO 1 % (0-6); Hematocrit 38.2 % (33.0-51.0); Hemoglobin 12.8 g/dL (11.5-16.0); IMMATURE GRAN ABSOLUTE AUTO 0.04 K/mm3 (0.00-0.10); IMMATURE GRAN PERCENT AUTO 0 % (0-1); LYMPHOCYTES ABSOLUTE AUTO 2.92 K/mm3 (0.84-5.20); LYMPHOCYTES PERCENT AUTO 24 % (21-46); MONOCYTES ABSOLUTE AUTO 0.74 K/mm3 (0.16-1.47); MONOCYTES PERCENT AUTO 6 % (4-13); Mean Corpuscular HGB 29.7 pg (26.0-34.0); Mean Corpuscular HGB Conc 33.5 g/dL (31.5-36.5); Mean Corpuscular Volume 89 fL (80-100); Mean Platelet Volume 9.5 fL (9.1-12.4); NEUTROPHILS ABSOLUTE AUTO 8.34 K/mm3 (1.96-9.15); NEUTROPHILS PERCENT AUTO 68 % (41-73); Platelet Count 288 K/mm3 (150-400); RDW Coefficient Variation 12.8 % (11.7-14.2); RDW Standard Deviation 41.8 fL (35.1-46.3); Red Blood Cell Count 4.31 M/mm3 (3.80-5.20); White Blood Cell Count 12.23 K/mm3 (4.00-11.30)
[2024-11-01 08:24] VITALS: BP 108/90
[2024-11-01] MEDS ORDERED: Acetaminophen 500 MG Tab PO PRN (09:25)
[2024-11-01] MEDS ORDERED: OxyCODONE HCL 5 MG TAB PO PRN (09:25)
--- NOTE | 2024-11-01 09:35 | NUR ---
INCOME TAX ADVISOR & IVF STOPPED. PT UPDATED ON NEW PLAN OF CARE.
--- NOTE | 2024-11-01 11:26 | NUR ---
UPDATE SINCE TURNING OFF TRANSITIONAL CARE NURSE & TAKING TYLENOL. PAIN WELL CONTROLLED. DECLINES OXYCODONE. TOLERATING DIET.
[2024-11-01] MEDS ORDERED: Percocet 5-3251 EACH PO (14:10)
[2024-11-01] MEDS ORDERED: NITR100CA PO (14:11)
--- NOTE | 2024-11-01 14:15 | NUR ---
DISCHARGE VERY HAPPY TO BE DC'ing HOME. PAIN IS TOLERABLE W/ TYLENOL ONLY; DECLINES OXY OR IBU. Rx GIVEN FOR ABX & PERCOCET. DECLINES WC OUT & AMBULATES OUT w/ SPOUSE.
== END 2024-11-01 14:10 | disposition home or self-care (01) ==
LOC: ER 02:58 → SURS 02:59
PROVIDERS: Student in an Organized Health Care Education/Training Program; ADMIT Obstetrics & Gynecology
DX: D27.0 Benign neoplasm of right ovary (principal); F32.9 Major depressive disorder, single episode, unspecified; Z79.899 Other long term (current) drug therapy; Z88.8 Allergy status to other drugs, medicaments and biological substances
CPT/HCPCS: 74177; 76830; 76856; 80053; 81001; 83690; 84703; 85025; 86304; 87077; 87086; 87186; 96374; 96375; 96376; 99285-25; A9270; G0378; J1171; J1630; J1790; J1885; J2270; J3010; J7120; Q9967

== ENCOUNTER 2024-11-11 07:36 | Inpatient (IN) | payer OTHER ==
[2024-11-11] VITALS (21 sets, daily range): BP systolic 118–149; BP diastolic 62–100
[~2024-11-11] VITALS: Ht 164 cm; Wt 114.0 kg
[~2024-11-11 07:36] MED LIST changes: +CeFAZolin Sodium 2,000 MG in NS 100 ML IV SCH; +Lactated Ringer's 1,000 ML IV SCH; +NITR100CA PO; +OXYACE7.5T PO
[2024-11-11] MEDS ORDERED: IBUP800 PO (08:01)
[2024-11-11] MEDS ORDERED: FentaNYL Citrate 50 MCG/ML 2 ML Injection ONE ×3 (08:11→10:25)
[2024-11-11] MEDS ORDERED: CeFAZolin Sodium 2,000 MG VIAL ONE (08:11)
[2024-11-11] MEDS ORDERED: Midazolam HCl 1MG / ML 2ML Vial ONE (08:11)
[2024-11-11] MEDS ORDERED: propofoL 20 ML IV ONE (08:11)
[2024-11-11] MEDS ORDERED: Rocuronium Bromide 10 MG/ML 5ML Injection IV ONE (08:11)
[2024-11-11] MEDS ORDERED: Bupivacaine 0.5% HCl 5 MG/ML 30MLVIAL ONE (08:15)
--- NOTE | 2024-11-11 08:30 | NUR ---
PATIENT GAVE GLASSES TO TO KEEP SAFE DURING SURGERY. NOSE RING TAPED IN PLACE FOR SAFETY.
[2024-11-11] MEDS ORDERED: Ketorolac Tromethamine 30mg Vial ONE (08:39)
[2024-11-11] MEDS ORDERED: Ondansetron HCl 2 MG / ML 2ML Vial ONE ×2 (08:39→10:10)
[2024-11-11] MEDS ORDERED: Dexamethasone Sod Phos 10 MG/ML 1ML VIAL ONE (08:39)
[2024-11-11] MEDS ORDERED: Neostigmine Methylsulfate 5MG/5ML SYR ONE (09:10)
[2024-11-11] MEDS ORDERED: Glycopyrrolate 0.2 MG/ML 5ML VIAL ONE (09:10)
[2024-11-11] MEDS ORDERED: FentaNYL Citrate 50 MCG/ML 2 ML Injection IV PRN ×3 (09:30→09:55)
[2024-11-11] MEDS ORDERED: Lidocaine HCl 1% 5 ML SYR INJ ONE (09:35)
[2024-11-11] MEDS ORDERED: Ondansetron HCl 2 MG / ML 2ML Vial IV PRN ×2 (09:35→09:55)
[2024-11-11] MEDS ORDERED: Lactated Ringer's 1,000 ML IV SCH ×2 (09:35→09:55)
[2024-11-11] MEDS ORDERED: HYDROmorphone HCl/Pf 1MG SYR IV PRN ×2 (09:35)
[2024-11-11] MEDS ORDERED: OxyCODONE HCL 5 MG TAB PO PRN (09:55)
[2024-11-11] MEDS ORDERED: Acetaminophen 325 MG TABLET PO PRN (09:55)
[2024-11-11] MEDS ORDERED: Simethicone 80 MG Chew PO PRN (10:00)
[2024-11-11] MEDS ORDERED: HYDROmorphone HCl/Pf 1MG SYR ONE ×2 (10:05→10:36)
[2024-11-11] MEDS ORDERED: HYDROmorphone HCl/Pf 1MG SYR IV ONE (10:35)
--- NOTE | 2024-11-11 11:33 | NUR ---
ARRIVAL PT ARRIVED TO UNIT FROM PACU. SLIDE TO BED WITH SLIDER SHEET. PT PAINFUL WITH SLIDING. PAIN WHILE VISUALIZING INCISION ABDOMEN HAS TO BE LIFTED, DRESSING CDI AT THIS TIME. PT ON ROOM AIR, AA0X4. TOLERATING WATER AND CRACKERS AT THIS TIME. SPOKE WITH PATIENT ABOUT PAIN MANAGEMENT. WILL BEGIN PO MEDICATIONS ONCE SHE HAS BEEN ABLE TO EAT. SIGNIFICANT OTHER AT BEDSIDE. K PAD PROVIDED FOR PATIENT COMFORT. CALL LIGHT PROVIDED.
[2024-11-11] MEDS ORDERED: Ketorolac Tromethamine 30mg Vial IV SCH (12:00)
--- NOTE | 2024-11-11 12:32 | NUR ---
PRESCRIPTION SENT WITH SIGNIFICANT OTHER TO FILL PRIOR TO DISCHARGE PER PT REQUEST.
--- NOTE | 2024-11-11 21:09 | NUR ---
ASSUMED CARE ASSUMED CARE FROM DAY RN. PT A/OX4 WITH VSS. IS POD 0 S/P LAPAROTOMY FOR REMOVAL OF LARGE DERMOID OVARIAN CYST AND APPENDIX. MEDIPORE DRESSING TO TRANSVERSE ABD INCISION CDI. PT AMBULATING IN ROOM, TOLERATING PO, AND VOIDING. REPORTS PAIN MANAGED PER EMAR AND HEAT THERAPY. BINDER IN PLACE. PT CURRENTLY IN BED RESTING AND VISITING WITH S/O AT BEDSIDE. MEDICATED AT THIS TIME PER EMAR FOR PAIN. FRESH ICE WATER PROVIDED. PT HAS CALL LIGHT REACH AND ABLE TO MAKE NEEDS KNOWN. DENIES CONCERNS.
[2024-11-12 03:10] VITALS: BP 117/65
--- NOTE | 2024-11-12 04:13 | NUR ---
SHIFT SUMMARY NO ACUTE CHANGES DURING SHIFT. ABD INCISIONS CDI WITH BINDER AND HEAT PAD IN PLACE FOR COMFORT. PT UP IN ROOM IND. IS VOIDING AND MILKA PO. PAIN MANAGED PER EMAR. VSS. PLAN FOR POSSIBLE D/C HOME TODAY. WILL GIVE REPORT TO ONCOMING RN.
[2024-11-12 06:13] LABS: BASOPHILS ABSOLUTE AUTO 0.01 K/mm3 (0.00-0.23); BASOPHILS PERCENT AUTO 0 % (0-2); EOSINOPHILS ABSOLUTE AUTO 0.01 K/mm3 (0.00-0.68); EOSINOPHILS PERCENT AUTO 0 % (0-6); Hematocrit 36.9 % (33.0-51.0); Hemoglobin 12.4 g/dL (11.5-16.0); IMMATURE GRAN ABSOLUTE AUTO 0.09 K/mm3 (0.00-0.10); IMMATURE GRAN PERCENT AUTO 1 % (0-1); LYMPHOCYTES ABSOLUTE AUTO 2.56 K/mm3 (0.84-5.20); LYMPHOCYTES PERCENT AUTO 14 % (21-46); MONOCYTES ABSOLUTE AUTO 1.29 K/mm3 (0.16-1.47); MONOCYTES PERCENT AUTO 7 % (4-13); Mean Corpuscular HGB Conc 33.6 g/dL (31.5-36.5); Mean Corpuscular Volume 89 fL (80-100); Mean Platelet Volume 9.9 fL (9.1-12.4); NEUTROPHILS ABSOLUTE AUTO 14.99 K/mm3 (1.96-9.15); NEUTROPHILS PERCENT AUTO 79 % (41-73); Platelet Count 281 K/mm3 (150-400); RDW Coefficient Variation 12.9 % (11.7-14.2); RDW Standard Deviation 42.3 fL (35.1-46.3); Red Blood Cell Count 4.13 M/mm3 (3.80-5.20); White Blood Cell Count 18.95 K/mm3 (4.00-11.30)
[2024-11-12 07:21] VITALS: BP 127/72
[2024-11-12] MEDS ORDERED: Ibuprofen 400 MG Tab PO PRN (08:00)
[2024-11-12] MEDS ORDERED: Enoxaparin 40 MG/0.4 ML SYR SC SCH (09:00)
[2024-11-12] MEDS ORDERED: OxyCODONE HCL 5 MG TAB PO PRN (09:22)
[2024-11-12 13:33] VITALS: BP 133/77
--- NOTE | 2024-11-12 14:47 | NUR ---
DISCHARGING MEDICATED PER ORDERS FOR PAIN. PT'S SPOUSE PICKED UP PRESCRIPTION. REVIEWED DC INSTRUCTIONS W/PT; VERBALIZED UNDERSTANDING. VSS. PT GETTING DRESSED NOW.
--- NOTE | 2024-11-12 14:56 | NUR ---
discharged PT LEFT UNIT IN WC W/POSSESSIONS AND DC PAPERWORK IN HAND, ACCOMPANIED BY SPOUSE.
== END 2024-11-12 14:35 | disposition home or self-care (01) | DRG 743 ==
LOC: MEDS 07:36 → PRE IP 08:30 → SURS 11:02
PROVIDERS: ADMIT Obstetrics & Gynecology
PROC: 0DTJ0ZZ Resection of Appendix, Open Approach (ICD-10-PCS; principal; 2024-11-11 08:30)
PROC: 0UB00ZZ Excision of Right Ovary, Open Approach (ICD-10-PCS; principal; 2024-11-11 08:30)
DX: D27.0 Benign neoplasm of right ovary (principal); K37 Unspecified appendicitis; K38.1 Appendicular concretions; F32.A Depression, unspecified; F41.9 Anxiety disorder, unspecified; Z90.710 Acquired absence of both cervix and uterus; Z98.890 Other specified postprocedural states
CPT/HCPCS: 36415; 85025; 88108; 88304; 88305; 94762; A9270; J0690; J1100; J1171; J1650; J1885; J2250; J2405; J2704; J2710; J3010; J7120